=== PATIENT | male | born 1990 | race Two or more races ===

== ENCOUNTER 2024-01-01 17:28 | Emergency (ER) | payer OTHER ==
[~2024-01-01] VITALS: Ht 167.6 cm; Wt 91.0 kg
[2024-01-01] MEDS ORDERED: COROSUS RIGHT EAR (19:18)
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
[2024-01-01 19:34] VITALS: BP 128/82; PULSE 75; RESP 18; TEMP 98.4; O2SAT 95
== END 2024-01-01 19:41 | disposition home or self-care (01) ==
LOC: ER 17:28
DX: T16.1XXA Foreign body in right ear, initial encounter (principal); W44.8XXA Other foreign body entering into or through a natural orifice, initial encounter; Y93.89 Activity, other specified; Y92.89 Other specified places as the place of occurrence of the external cause; Y99.8 Other external cause status